=== PATIENT | female | born 1960 | race Caucasian/White ===

== ENCOUNTER 2016-11-25 06:25 | Day surgery (SDC) | payer BC ==
[2016-11-25] MEDS ORDERED: Lactated Ringers 1,000 ML IV SCH (06:45)
[2016-11-25] MEDS ORDERED: Propofol 200 MG/20 ML SDV ONE ×2 (07:16→07:56)
[2016-11-25] MEDS ORDERED: Midazolam 1 MG/ML 2 ML SDV ONE (07:16)
[2016-11-25] MEDS ORDERED: fentaNYL 100 MCG/2 ML SDV ONE (07:16)
[2016-11-25] MEDS ORDERED: Dexamethasone 4 MG/ML SDV ONE (07:35)
[2016-11-25] MEDS ORDERED: Ondansetron 4 MG/2 ML SDV ONE (07:35)
[2016-11-25 09:26] VITALS: BP 126/77
--- NOTE | 2016-11-26 08:20 | OR ---
DATE OF PROCEDURE: 11/25/2016 PREOPERATIVE DIAGNOSES: History of gastric polyps, gastroesophageal reflux disease. POSTOPERATIVE DIAGNOSES: Gastric polyps and gastroesophageal reflux disease. PROCEDURES: Esophagogastroduodenoscopy with removal of three gastric polyps and biopsy of gastroesophageal junction. SURGEON: Pedrito Blanco MD. ANESTHESIA: IV anesthesia with monitored anesthesia care. INDICATIONS: This 55-year-old white female was referred for an upper endoscopy. She has a history of gastroesophageal reflux disease. She is a failed EndoCinch. In 2010, upper endoscopy showed some gastric hyperplastic polyps. She has been on a proton pump inhibitor. I counseled her for upper endoscopy with possible biopsy including risks and alternatives, and she gave her informed consent to proceed. DESCRIPTION OF PROCEDURE: The patient was placed in the left lateral decubitus position. IV anesthesia was administered by the Anesthesia Service. Time-out was held. The flexible video Olympus upper endoscope was passed through her mouth, down her esophagus, and into her stomach. The scope was easily passed through the pylorus and into the duodenum reaching its third portion. The scope was then slowly withdrawn examining the mucosa throughout. The duodenal mucosa appeared unremarkable. The scope was brought back through the pylorus and into the antrum. The antrum appeared unremarkable. The scope was retroflexed. We saw several fairly prominent polyps. The scope was straightened. These polyps, which appeared to be fundic gland polyps, were removed with a biopsy forceps. This involved grasping the polyps and removing them from the stomach. Since the polyp was so large, we removed the scope and retrieved the polyp at the end of the scope. The scope was then reintroduced back into the stomach. The next polyp was removed in the same fashion. After these three polyps were removed, the scope was placed, and we biopsied her gastroesophageal junction with six biopsies. The scope was then removed. The remainder of the esophagus appeared unremarkable. She tolerated the procedure well. Pedrito Blanco MD /[id number] MTDD
== END 2016-11-25 09:45 | disposition home or self-care (01) ==
LOC: JP.SDS 06:25
PROVIDERS: ATTEND Surgery
DX: K31.7 Polyp of stomach and duodenum (principal); K20.9 Esophagitis, unspecified; Z88.1 Allergy status to other antibiotic agents; Z88.8 Allergy status to other drugs, medicaments and biological substances
CPT/HCPCS: 43239; 88305; 88312; J1100; J2250; J2405; J2704; J3010; J7120

== ENCOUNTER → 2019-11-10 | Day surgery (SDC) | payer BC ==
[~2019-11-10] MED LIST: Dextrose 5%-Lactated Ringers 1,000 ML IV SCH; Glycopyrrolate 0.2 MG/ML 2 ML SDV IVPUSH ONE; Labetalol 20 MG/4 ML Syringe IVPUSH PRN; Labetalol 20 MG/4 ML Syringe ONE; Midazolam 1 MG/ML 2 ML SDV ONE; Ondansetron 4 MG/2 ML SDV ONE; Propofol 200 MG/20 ML SDV ONE; fentaNYL 100 MCG/2 ML SDV ONE
[2019-11-10 13:14] VITALS: BP 130/72; PULSE 72
--- NOTE | 2019-11-15 14:28 | OR ---
DATE OF PROCEDURE: 11/10/2019 SURGEON: Sang Dietz MD PREOPERATIVE DIAGNOSIS: History of failed antireflux procedure with history of fundic gland polyps. POSTOPERATIVE DIAGNOSIS: History of failed antireflux procedure with history of fundic gland polyps. OPERATIVE PROCEDURES: Esophagogastroduodenoscopy with: 1. Polypectomy by snare technique (80838). 2. Excision of additional polyp by cold biopsy forceps (37467). ANESTHESIA: IV sedation. INDICATIONS FOR PROCEDURE: The patient is a 58-year-old status post previous antireflux procedure. By history, this sounds like it may have been an EndoCinch procedure. She has history of fundic gland polyps follow up with polyps. Potential risks of the procedure including bleeding and perforation were discussed, and the patient wishes to proceed. DETAILS OF PROCEDURE: The patient was taken to the operating room and placed in a left lateral decubitus position. IV sedation was administered, after which the upper GI endoscope was passed orally through the length of the esophagus into the stomach with retroflexion view of the fundus, thereafter through the pyloric channel into the junction of 3rd and 4th portions of the duodenum. Findings included normal hypopharynx, larynx, upper esophageal sphincter, and esophageal body. At the EG junction, the patient was noted to have a fairly large hiatal hernia measuring around 3 to 4 cm. This was associated with a completely wide open esophagogastric junction consistent with quite wide dilation of the esophageal hiatus at the level of the hernia. There is probably some paraesophageal component of this on retroflexion with side pocket of stomach extending along the main course of the esophageal gastric lumen. At the EG junction itself, there was minimal gross inflammation. There were multitude of fundic gland polyps probably in the range of 50 present. Otherwise, there was some patchy redness within the stomach. The pyloric channel junction and the visualized portion of the duodenum were unremarkable. At this point, 2 of the larger polyps were obtained by means of polypectomy snare and these were evacuated and sent for histologic evaluation. One additional polyp, which appeared to be somewhat reddened and inflamed, could not be encircled at its base with the snare and this was removed by cold biopsy forceps using 2 bites removing the entire polyp. Minimal bleeding at the biopsy and snare locations was noted and the procedure was then concluded. The patient overall would probably be a candidate for a surgical antireflux procedure. At this point, she apparently has been somewhat resistant to that idea, but the amount of problem that she is having would argue that surgical antireflux procedure may be quite beneficial in this case. We will see the patient back next Wednesday to review the findings and discuss treatment options. Sang Dietz MD /[id number]
== END ==
LOC: JP.SDS 08:21
PROVIDERS: ATTEND Surgery
DX: K31.7 Polyp of stomach and duodenum (principal); E66.9 Obesity, unspecified; E03.9 Hypothyroidism, unspecified
CPT/HCPCS: 43239; 43251; 88305; J2250; J2405; J2704; J3010; J3490; J7121

== ENCOUNTER 2020-08-27 06:55 | Day surgery (SDC) | payer BC ==
[2020-08-27] MEDS ORDERED: Midazolam 1 MG/ML 2 ML SDV ONE (07:23)
[2020-08-27] MEDS ORDERED: Propofol 200 MG/20 ML SDV ONE (07:23)
[2020-08-27] MEDS ORDERED: fentaNYL 100 MCG/2 ML SDV ONE (07:23)
[2020-08-27] MEDS ORDERED: Sodium Chloride 0.9% 1,000 ML IV SCH (07:30)
[2020-08-27] MEDS ORDERED: Ondansetron 4 MG/2 ML SDV ONE (07:59)
[2020-08-27 09:27] VITALS: BP 115/67; PULSE 78
--- NOTE | 2020-08-27 12:34 | OR ---
DATE OF PROCEDURE: 08/27/2020 SURGEON: Eric Newton MD PROCEDURE: Colonoscopy. FINDINGS: Diverticulosis, mild, limited to sigmoid colon without evidence of diverticulitis or bleeding. COMPLICATIONS: None. BUSINESS PERFORMANCE SPECIALIST: None. ANESTHESIA: MAC. PREOPERATIVE DIAGNOSIS: Screening colonoscopy. POSTOPERATIVE DIAGNOSIS: Screening colonoscopy. RISKS: Risks, benefits, alternatives, and limitations including, but not limited to infection, bleeding, false positives and false negatives were explained to the patient who wished to proceed. PROCEDURE IN DETAIL: The patient was placed in left lateral decubitus position. Digital rectal exam was performed without abnormality. Scope was introduced and advanced atraumatically to the ileocecal valve. A photo was taken of this. The scope was brought back to the ascending, transverse, descending colon, and retroflexed. No evidence of old or new blood. No masses. No polyps. No old or new blood. The prep was acceptable with approximately 90% of the luminal surface could be seen. No abnormalities on retroflexion. The patient tolerated the procedure well. Greater than 8 minutes was spent removing the scope. Eric Newton MD /[id number]
== END 2020-08-27 09:30 | disposition home or self-care (01) ==
LOC: JP.SDS 06:55
PROVIDERS: ATTEND Surgery
DX: Z12.11 Encounter for screening for malignant neoplasm of colon (principal); K57.30 Diverticulosis of large intestine without perforation or abscess without bleeding; E78.5 Hyperlipidemia, unspecified; E66.9 Obesity, unspecified; K21.9 Gastro-esophageal reflux disease without esophagitis; Z68.37 Body mass index [BMI] 37.0-37.9, adult
CPT/HCPCS: 45378; J2250; J2405; J2704; J3010; J7030